=== PATIENT | female | born 1970 | race Caucasian/White ===

== ENCOUNTER 2018-02-10 18:39 | Emergency (ER) | payer MEDICAID ==
[2018-02-10] MEDS: IBUPROFEN 600 MG TAB PO (22:16)
== END 2018-02-11 00:53 | disposition home or self-care (01) ==
LOC: FTE 02-11 00:53
DX: M25.572 Pain in left ankle and joints of left foot (principal); R40.2412 Glasgow coma scale score 13-15, at arrival to emergency department
CPT/HCPCS: 73610; 99283-25